=== PATIENT | female | born 1960 | race Caucasian/White ===

== ENCOUNTER 2017-03-22 09:32 | Emergency (ER) | payer OTHER ==
[2017-03-22 09:55] VITALS: BP 145/79
[2017-03-22] MEDS ORDERED: DOXYcycline CAP(*) 100 MG PO ONE (10:51)
--- NOTE | 2017-03-22 11:01 | UC ---
Skin Complaint HPI - HPI Summary HPI Summary: 56 y/o female presents to the urgent care c/o of a tick bite in her groin since yesterday while she was gardening. Pt states she removed the tick but still some remnants in there. Patient denies fever, rash, SOB, N/V/D or chest pain. - History of Current Complaint Chief Complaint: UCSkin Time Seen by Provider: 03/22/17 10:35 Stated Complaint: tick bite Hx Obtained From: Patient Hx Last Menstrual Period: patient is menopause Onset/Duration: Sudden Onset, Lasting Hours, Still Present Skin Exposure Onset/Duration: Hours Ago Timing: Constant Onset Severity: Mild Current Severity: Mild Pain Intensity: 1 Pain Scale Used: 0-10 Numeric Location: Other - LF side of groin Character: Redness Aggravating: Nothing Alleviating: Cold Associated Signs & Symptoms: Negative: Nausea, Vomiting, Numbness, Fever, Rash Related History: Insect Bite/Sting - Allergy/Home Medications Allergies/Adverse Reactions: Allergies Allergy/AdvReac Type Severity Reaction Status Date / Time Sulfa Antibiotics Allergy Intermediate Hives Verified 03/22/17 09:55 Home Medications: Home Medications NK [No Home Medications Reported] 03/22/17 [History Confirmed 03/22/17] Review of Systems Constitutional: Negative Skin: Other - tick bite Eyes: Negative ENT: Negative Respiratory: Negative Cardiovascular: Negative Gastrointestinal: Negative Genitourinary: Negative Motor: Negative Neurovascular: Negative Musculoskeletal: Negative Neurological: Negative Psychological: Negative All Other Systems Reviewed And Are Negative: Yes PMH/Surg Hx/FS Hx/Imm Hx - Surgical History Surgical History: Yes Surgery Procedure, Year, and Place: HYSTERECTOMY APRIL 2014 - Social History Alcohol Use: Rare Substance Use Type: None Smoking Status (MU): Never Smoked Tobacco Physical Exam Triage Information Reviewed: Yes Appearance: Well-Appearing, No Pain Distress, Well-Nourished, Thin Vital Signs: Initial Vital Signs Temp 98.4 F 03/22/17 09:53 Pulse 74 03/22/17 09:53 Resp 16 03/22/17 09:53 BP 145/79 03/22/17 09:53 Pulse Ox 99 03/22/17 09:53 Vital Signs Reviewed: Yes Eye Exam: Normal Eyes: Positive: Conjunctiva Clear ENT Exam: Normal ENT: Positive: Normal ENT inspection, Hearing grossly normal, Pharynx normal, TMs normal Neck exam: Normal Neck: Positive: Supple, Nontender, No Lymphadenopathy Respiratory Exam: Normal Respiratory: Positive: Chest non-tender, Lungs clear, Normal breath sounds Cardiovascular Exam: Normal Cardiovascular: Positive: RRR, No Murmur, Pulses Normal Abdominal Exam: Normal Abdomen Description: Positive: Nontender, No Organomegaly, Soft Bowel Sounds: Positive: Present Musculoskeletal Exam: Normal Musculoskeletal: Positive: Strength Intact, ROM Intact, No Edema Neurological Exam: Normal Psychological Exam: Normal Skin Exam: Normal Skin: Positive: Other - Positive tick bite at the left side of suprapubic area. mild erythema observed, no swelling or tenderness on palpation at the tick bite site. Course/Dx - Course Course Of Treatment: Tick bite:Hx obtained. PE findgs:Positive tick bite at the left side of suprapubic area. mild erythema observed, no swelling or tenderness on palpation at the tick bite site. Patient given prophylactic treament of doxycycline 200 mg PO once to prevent Lyme disease. Pt tolerated well medication. Pt advised If fever or rash develops please return to the clinic for further evaluation and treatment. Pt left clinic ambulating. - Differential Diagnoses - Skin Complaint Differential Diagnoses: Poison Cande, Scabies, Tick Born Illness, Tinea, Urticaria , Other - tick bite - Diagnoses Provider Diagnoses: TICK BITE Discharge - Discharge Plan Condition: Stable Disposition: HOME Patient Education Materials: Tick Bite (ED) Referrals: Davion العلي MD [Primary Care Provider] - Additional Instructions: Please observe the area for the development or Erythema Migrans for upto 30 days following exposure. Components of the tick saliva can cause transient erythema that should no be confused with Erythema Migrans. Antibiotic prophylaxis with Doxycycline given to the patient to prevent lyme Disease. If fever or rash develops please return to the clinic for further evaluation and treatment.
== END 2017-03-22 11:39 | disposition home or self-care (01) ==
LOC: UCEAST 09:32
DX: S30.861A Insect bite (nonvenomous) of abdominal wall, initial encounter (principal); W57.XXXA Bitten or stung by nonvenomous insect and other nonvenomous arthropods, initial encounter; Y93.H2 Activity, gardening and landscaping; Y92.9 Unspecified place or not applicable; Z90.710 Acquired absence of both cervix and uterus; Z88.2 Allergy status to sulfonamides
CPT/HCPCS: 99212; A9270-GY; G0463